=== PATIENT | female | born 1985 | race Caucasian/White ===

== ENCOUNTER 2022-04-28 11:31 | Emergency (ER) | payer SELFPAY ==
[~2022-04-28] VITALS: Ht 157.5 cm; Wt 72.1 kg
[2022-04-28 11:40] VITALS: BP 142/87
--- NOTE | 2022-04-28 11:47 | NUR ---
TRIAGE ASSESSMENT COMPLETED.
[2022-04-28] MEDS ORDERED: methocarbamoL 500 MG TAB PO STA (12:19)
[2022-04-28] MEDS ORDERED: ACETAMINOPHEN 325 MG TAB PO ONE (12:20)
[2022-04-28] MEDS ORDERED: METH-1681 PO (13:10)
[2022-04-28] MEDS ORDERED: ACET-10509 PO (13:10)
--- NOTE | 2022-04-28 13:18 | NUR ---
Patient discharged with v/s stable. Written and verbal after care instructions ABOUT HEAD INJURY, FACIAL/SCALP CONTUSION, CERVICAL SPRAIN AND CONTUSION given and explained. Patient alert, oriented and verbalized understanding of instructions. Ambulatory with steady gait. All questions addressed prior to discharge. ID band removed. Patient advised to follow up with PMD. Rx of TYLENOL EXTRA STRENGTH, ROBAXIN given. Patient educated on indication of medication including possible reaction and side effects. Opportunity to ask questions provided and answered.
--- NOTE | 2022-04-28 13:18 | NUR ---
PATIENT BIB [employer]. PATIENT EXAMINED BY DR. LAN. PATIENT MEDICALLY CLEARED AND RELEASED IN CUSTODY IN STABLE CONDITION. ORIGINAL PRE-BOOK FORM GIVEN TO OFFICER [facility] #779.
== END 2022-04-28 13:18 ==
LOC: MED 11:31
DX: S00.83XA Contusion of other part of head, initial encounter (principal); S19.9XXA Unspecified injury of neck, initial encounter; Y04.0XXA Assault by unarmed brawl or fight, initial encounter; Y93.89 Activity, other specified; Y92.89 Other specified places as the place of occurrence of the external cause; Y99.8 Other external cause status
CPT/HCPCS: 99283